=== PATIENT | female | born 1970 | race African-American/Black ===

== ENCOUNTER → 2017-11-18 | Outpatient (CLI) | payer MEDICARE, OTHER ==
--- NOTE | 2017-11-19 07:56 | MM ---
Reason for exam: screening (asymptomatic). Baseline mammogram. History: Family history of breast cancer in grandmother. Physical Findings: Nurse did not find any significant physical abnormalities on exam. MG 3D Screening Mammo W/Cad Bilateral CC and MLO view(s) were taken. No prior studies available for comparison. There is a 4.5mm mass 5.7cm from the nipple in the lower inner quadrant of the left breast at middle depth. Ultrasound will be performed. These results were verbally communicated with the patient and result sheet given to the patient on 11/18/17. ASSESSMENT: Incomplete: need additional imaging evaluation, BI-RAD 0 RECOMMENDATION: Ultrasound of the left breast. (Lower inner quadrant).
--- NOTE | 2017-11-19 08:00 | USB ---
Reason for exam: additional evaluation requested from abnormal screening. History: Family history of breast cancer in grandmother. US Breast Workup Limited LT Possibly benign appearing 5mm sonographic hyperchoic mass at 8 o'clock. However this is best seen mammographically and well circumscribed. 6 month follow up diagnostic mammogram is recommended. These results were verbally communicated with the patient and result sheet given to the patient on 11/18/17. ASSESSMENT: Probably benign, BI-RAD 3 RECOMMENDATION: Follow-up diagnostic mammogram of the left breast in 6 months.
== END | disposition home or self-care (01) ==
LOC: RADMAMWWP 13:04
PROVIDERS: ATTEND Internal Medicine
DX: Z12.31 Encounter for screening mammogram for malignant neoplasm of breast (principal); R92.8 Other abnormal and inconclusive findings on diagnostic imaging of breast; R92.2 Inconclusive mammogram
CPT/HCPCS: 77063; 77067

== ENCOUNTER → 2017-11-19 | Outpatient (CLI) | payer MEDICARE, OTHER ==
--- NOTE | 2017-11-19 23:36 | MR ---
EXAMINATION TYPE: MR shoulder LT wo con DATE OF EXAM: 11/19/2017 COMPARISON: NONE HISTORY: Lt shoulder pain x 2 mos, no trauma TECHNIQUE: Multiplanar, multisequence imaging of the left shoulder is performed without contrast. FINDINGS: The biceps tendon is intact. The glenoid amira appear intact. Subscapularis tendon is intact. The supraspinatus tendon shows some mild thinning at the greater tuberosity. There is no full-thickne ss tear seen. The glenohumeral joint is intact. There is no evidence of a fracture. There are small s houlder joint effusion. IMPRESSION: Small shoulder joint effusion consistent with synovitis. Slight increased signal and thinning of the supraspinatus tendon consistent with some tendinitis. No full-thickness tear seen.
== END | disposition home or self-care (01) ==
LOC: RADMRIMAIN 19:12
PROVIDERS: ATTEND Internal Medicine
DX: M25.412 Effusion, left shoulder (principal); M67.90 Unspecified disorder of synovium and tendon, unspecified site

== ENCOUNTER → 2018-03-10 | Outpatient (CLI) | payer MEDICARE, OTHER | END | disposition home or self-care (01) | LOC: LABWHC1 16:06 | PROVIDERS: ATTEND Anesthesiology | DX: Z01.818 Encounter for other preprocedural examination (principal) | CPT/HCPCS: 36415; 93005 ==

== ENCOUNTER → 2021-06-27 | Outpatient (CLI) | payer MEDICARE ==
[2021-06-27 19:15] LABS: HCT 48.5 % (37.2-46.3); HGB 15.2 g/dL (12.0-15.0); MCH 28.7 pg (27.0-32.0); MCHC 31.3 g/dL (32.0-37.0); MCV 91.7 fL (80.0-97.0); Mean Platelet Volume 11.9 fL (9.5-12.2); Platelet Count 300 X 10*3/uL (140-440); RBC 5.29 X 10*6/uL (4.10-5.20); RDW 14.9 % (11.5-14.5); WBC 11.64 X 10*3/uL (4.50-10.00)
[2021-06-27 20:11] LABS: ALT 17 U/L (8-44); AST 18 U/L (13-35); African American GFR (CKD) 118.7 (60.0-200.0); Albumin/Globulin Ratio 1.67 (1.60-3.17); Alkaline Phosphatase 107 U/L (41-126); Bilirubin, Conjugated <0.20 mg/dL (0.20-0.40); Carbon Dioxide 25.6 mmol/L (21.6-31.8); Chloride 107 mmol/L (96-109); Chol/HDL Ratio 4.82; Cholesterol 241 mg/dL (0-200); Globulin 2.7 g/dL (1.6-3.3); Iron 95 ug/dL (50-170); Non-African American GFR(CKD) 102.5 (60.0-200.0); Potassium 4.6 mmol/L (3.5-5.5); Sodium 140 mmol/L (135-145); Total Bilirubin 0.4 mg/dL (0.3-1.2); Total Protein 7.2 g/dL (6.2-8.2)
[2021-06-27 21:37] LABS: Hemoglobin A1C 5.4 % (4.0-6.0)
== END | disposition home or self-care (01) ==
LOC: LABWHC1 13:18
PROVIDERS: ATTEND Internal Medicine
DX: E66.9 Obesity, unspecified (principal); I10 Essential (primary) hypertension; R51.9 Headache, unspecified; R73.9 Hyperglycemia, unspecified
CPT/HCPCS: 36415; 80051; 80061; 80076; 82565; 83036; 83540; 84439; 84443; 84520; 85027

== ENCOUNTER 2024-03-11 00:50 | Emergency (ER) | payer MEDICARE ==
[2024-03-11 01:06] VITALS: TEMP 97.9
--- NOTE | 2024-03-11 01:42 | ED ---
General Adult HPI - General Chief complaint: Shortness of Breath Stated complaint: TOMAS back pain vomiting Time Seen by Provider: 03/11/24 01:13 Source: patient, family Mode of arrival: wheelchair - History of Present Illness Initial comments: 53-year-old female presented to the ED with complaints of abdominal pain. Reports over the past 4 to 5 days had some upper abdominal/lower chest pain wrapping around to her back on her. Reports that she feels this pain whenever she takes a deep breath. Secondary to the pain, patient reports that she becomes short of breath. Also notes some associated nausea, no vomiting and chills. Denies chest pain. No changes in bowel or bladder habits. Patient reports that she is not a drinker. No other complaints at this time. - Related Data Home Medications Medication Instructions Recorded Confirmed DULoxetine HCL [Cymbalta] 90 mg PO DAILY 07/10/14 02/02/16 ARIPiprazole [Abilify] 10 mg PO DAILY 10/18/14 02/02/16 Propranolol HCl [Inderal] 100 mg PO DAILY 10/18/14 02/02/16 Topiramate [Topamax] 200 mg PO DAILY 10/18/14 02/02/16 lisinopriL [Zestril] 10 mg PO DAILY 10/18/14 02/02/16 HYDROcodone/APAP 10-325MG [[place] 1 tab PO DIRECTED PRN 12/14/14 02/02/16 10-325] oxyCODONE HCL 15 mg PO DIRECTED PRN 12/14/14 02/02/16 SUMAtriptan succinate [Imitrex] 8 mg SQ DAILY PRN 02/02/16 02/02/16 Previous Rx's Medication Instructions Recorded Naproxen 500 mg PO Q12HR 14 Days tab 02/02/16 Ondansetron Odt [Zofran Odt] 4 mg PO Q8HR PRN #10 tab 03/11/24 Allergies Allergy/AdvReac Type Severity Reaction Status Date / Time latex Allergy Rash/Hives Verified 03/11/24 01:00 Review of Systems ROS Statement: Those systems with pertinent positive or pertinent negative responses have been documented in the HPI. ROS Other: All systems not noted in ROS Statement are negative. Past Medical History Past Medical History: Hyperlipidemia, Hypertension Additional Past Medical History / Comment(s): migraines History of Any Multi-Drug Resistant Organisms: None Reported Past Surgical History: No Surgical Hx Reported, Section, Hysterectomy, Tubal Ligation Past Psychological History: Anxiety, Depression Smoking Status: Never smoker, Vaper Past Alcohol Use History: None Reported Past Drug Use History: None Reported General Exam General appearance: alert, in no apparent distress Eye exam: Present: normal appearance Neck exam: Present: normal inspection Respiratory exam: Present: normal lung sounds bilaterally. Absent: respiratory distress Cardiovascular Exam: Present: regular rate GI/Abdominal exam: Present: soft (Epigastric tenderness to palpation. No r ebound guarding or rigidity. Bowel sounds present.) Neurological exam: Present: alert, oriented X3 Skin exam: Present: warm, dry Course Vital Signs 03/11/24 03/11/24 03/11/24 00:53 01:30 02:00 Temperature 97.9 F Pulse Rate 80 82 Respiratory 18 16 16 Rate Blood Pressure 146/90 146/82 O2 Sat by Pulse 98 98 Oximetry Medical Decision Making - Medical Decision Making Was pt. sent in by a medical professional or institution (Dr. PA, [facility], urgent care, hospital, or senior living...) When possible be specific @ -No Did you speak to anyone other than the patient for history (EMS, parent, family, police, friend...)? What history was obtained from this source @ -No Did you review nursing and triage notes (agree or disagree)? Why? @ -I reviewed and agree with nursing and triage notes Were old charts reviewed (outside hosp., previous admission, EMS record, old EKG, old radiological studies, urgent care reports/EKG's, senior living records)? Report findings @ -No old charts were reviewed Differential Diagnosis (chest pain, altered mental status, abdominal pain women, abdominal pain men, vaginal bleeding, weakness, fever, dyspnea, syncope, headache, dizziness, GI bleed, back pain, seizure, CVA, palpatations, mental health, musculoskeletal)? @ -Differential Abdominal Pain Women: Appendicitis, Cholecystitis, diverticulosis, ischemic bowel, pancreatitis, hepatitis, UTI, gastroenteritis, AAA, incarcerated hernia, bowel obstruction, constipation, inflammatory bowel, hepatitis, peptic ulcer disease, splenic infarction, perforated viscus, vulvitis, ovarian torsion, PID, kidney stone, placenta abruption, this is not meant to be an all-inclusive list Differential Dyspnea: Coronary syndrome, arrhythmia, tamponade, asthma, COPD, pulmonary embolism, pneumonia, pneumothorax, pulmonary effusion, anaphylaxis, diabetic ketoacidosis, flailed chest, pulmonary contusion, diaphragmatic rupture, anemia, neuromuscular, this is not meant to be an all-inclusive list. EKG interpreted by me (3pts min.). @ -EKG interpreted me showing a sinus rhythm at [address] or T wave changes. MN 192, QRS 84, QT/QTc 354/376. X-rays interpreted by me (1pt min.). @ -Chest x-ray interpreted me which shows mild diffuse interstitial prominence compatible with pulmonary vascular congestion. CT interpreted by me (1pt min.). @ -None done U/S interpreted by me (1pt. min.). @ -None done What testing was considered but not performed or refused? (CT, X-rays, U/S, labs)? Why? @ -None What meds were considered but not given or refused? Why? @ -None Did you discuss the management of the patient with other professionals (professionals i.e. , PA, [facility], lab, RT, psych nurse, licensed clinical social worker, it web development consultant, teacher, global chief creative officer, field nurse case manager)? Give summary @ -No Was smoking cessation discussed for >3mins.? @ -No Was critical care preformed (if so, how long)? @ -No Were there social determinants of health that impacted care today? How? (Dany elessness, low income, unemployed, alcoholism, drug addiction, transportation, low edu. Level, literacy, decrease access to med. care, fdc, rehab)? @ -No Was there de-escalation of care discussed even if they declined (Discuss DNR or withdrawal of care, Hospice)? DNR status @ -No What co-morbidities impacted this encounter? (DM, HTN, Smoking, COPD, CAD, Cancer, CVA, ARF, Chemo, Hep., AIDS, mental health diagnosis, sleep apnea, morbid obesity)? @ -None Was patient admitted / discharged? Hospital course, mention meds given and route, prescriptions, significant lab abnormalities, going to OR and other pertinent info. @ -Discharge 53-year-old female presenting to the ED with complaints of upper abdominal pain wrapping around the right side of her abdomen to her back. Reports that she feels pain whenever she takes a deep breath and secondary to this has become short of breath and nauseous. Laboratory studies reviewed CBC does show an elevated white blood cell count of 12.2, elevated neutrophils 8.6. Chemistry panel largely unremarkable. Troponin undetectable. Urine shows no significant evidence of infection. Serology panel unremarkable. Chest x-ray showed findi ngs consistent with pulmonary vascular congestion. Symptoms likely musculoskeletal in nature. Vital signs stable afebrile with no tachycardia or hypoxia. Discharged home in stable condition with instructions to follow-up with her PCP. Discussed return precautions with patient who verbalized agree ment. Undiagnosed new problem with uncertain prognosis? @ -No Drug Therapy requiring intensive monitoring for toxicity (Heparin, Nitro, Insulin, Cardizem)? @ -No Were any procedures done? @ -No Diagnosis/symptom? @ -Abdominal pain Acute, or Chronic, or Acute on Chronic? @ -Acute Uncomplicated (without systemic symptoms) or Complicated (systemic symptoms)? @ -Uncomplicated Side effects of treatment? @ -No Exacerbation, Progression, or Severe Exacerbation? @ -No Poses a threat to life or bodily function? How? (Chest pain, [place], [place], pneumonia, PE, COPD, DKA, ARF, appy, cholecystitis, CVA, Diverticulitis, Homicidal, Suicidal, threat to staff... and all critical care pts) @ -No - Lab Data Result diagrams: 03/11/24 01:20 03/11/24 01:20 Lab Results 03/11/24 03/11/24 03/11/24 Range/Units 01:20 01:20 01:20 WBC 12.2 H (3.8-10.6) k/uL RBC 5.43 H (3.80-5.40) m/uL Hgb 15.0 (11.4-16.0) gm/dL Hct 47.5 H (34.0-46.0) % MCV 87.6 (80.0-100.0) fL MCH 27.7 (25.0-35.0) pg MCHC 31.6 (31.0-37.0) g/dL RDW 13.7 (11.5-15.5) % Plt Count 305 (150-450) k/uL MPV 8.9 Neutrophils % 71 % Lymphocytes % 21 % Monocytes % 4 % Eosinophils % 2 % Basophils % 0 % Neutrophils # 8.6 H (1.3-7.7) k/uL Lymphocytes # 2.6 (1.0-4.8) k/uL Monocytes # 0.5 (0-1.0) k/uL Eosinophils # 0.2 (0-0.7) k/uL Basophils # 0.1 (0-0.2) k/uL PT 10.2 (10.0-12.5) sec INR 0.9 (<1.2) APTT 23.8 (22.0-30.0) sec Sodium 141 (137-145) mmol/L Potassium 4.4 (3.5-5.1) mmol/L Chloride 113 H (98-107) mmol/L Carbon Dioxide 18 L (22-30) mmol/L Anion Gap 10 mmol/L BUN 15 (7-17) mg/dL Creatinine 0.78 (0.52-1.04) mg/dL Est GFR (CKD-EPI)AfAm >90 (>60 ml/min/1.73 sqM) Est GFR (CKD-EPI)NonAf 89 (>60 ml/min/1.73 sqM) Glucose 103 H (74-99) mg/dL Calcium 9.5 (8.4-10.2) mg/dL Total Bilirubin 0.4 (0.2-1.3) mg/dL AST 31 (14-36) U/L ALT 19 (4-34) U/L Alkaline Phosphatase 111 (38-126) U/L Troponin I (0.000-0.034) ng/mL Total Protein 7.3 (6.3-8.2) g/dL Albumin 4.1 (3.5-5.0) g/dL Amylase 57 (30-110) U/L Lipase 148 (23-300) U/L Urine Color Urine Appearance (Clear) Urine pH (5.0-8.0) Ur Specific [place] (1.001-1.035) Urine Protein (Negative) Urine Glucose (UA) (Negative) Urine Ketones (Negative) Urine Blood (Negative) Urine Nitrite (Negative) Urine Bilirubin (Negative) Urine Urobilinogen (<2.0) mg/dL Ur Leukocyte Esterase (Negative) Urine WBC (0-5) /hpf Ur Squamous Epith Cells (0-4) /hpf Amorphous Sediment (None) /hpf Urine Mucus (None) /hpf Influenza Type A (PCR) (Not Detectd) Influenza Type B (PCR) (Not Detectd) RSV (PCR) (Not Detectd) SARS-CoV-2 (PCR) (Not Detectd) 03/11/24 03/11/24 03/11/24 Range/Units 01:20 01:20 01:35 WBC (3.8-10.6) k/uL RBC (3.80-5.40) m/uL Hgb (11.4-16.0) gm/dL Hct (34.0-46.0) % MCV (80.0-100.0) fL MCH (25.0-35.0) pg MCHC (31.0-37.0) g/dL RDW (11.5-15.5) % Plt Count (150-450) k/uL MPV Neutrophils % % Lymphocytes % % Monocytes % % Eosinophils % % Basophils % % Neutrophils # (1.3-7.7) k/uL Lymphocytes # (1.0-4.8) k/uL Monocytes # (0-1.0) k/uL Eosinophils # (0-0.7) k/uL Basophils # (0-0.2) k/uL PT (10.0-12.5) sec INR (<1.2) APTT (22.0-30.0) sec Sodium (137-145) mmol/L Potassium (3.5-5.1) mmol/L Chloride (98-107) mmol/L Carbon Dioxide (22-30) mmol/L Anion Gap mmol/L BUN (7-17) mg/dL Creatinine (0.52-1.04) mg/dL Est GFR (CKD-EPI)AfAm (>60 ml/min/1.73 sqM) Est GFR (CKD-EPI)NonAf (>60 ml/min/1.73 sqM) Glucose (74-99) mg/dL Calcium (8.4-10.2) mg/dL Total Bilirubin (0.2-1.3) mg/dL AST (14-36) U/L ALT (4-34) U/L Alkaline Phosphatase (38-126) U/L Troponin I <0.012 (0.000-0.034) ng/mL Total Protein (6.3-8.2) g/dL Albumin (3.5-5.0) g/dL Amylase (30-110) U/L Lipase (23-300) U/L Urine Color Light Yellow Urine Appearance Turbid H (Clear) Urine pH 7.5 (5.0-8.0) Ur Specific [place] 1.023 (1.001-1.035) Urine Protein Trace H (Negative) Urine Glucose (UA) Negative (Negative) Urine Ketones Negative (Negative) Urine Blood Negative (Negative) Urine Nitrite Negative (Negative) Urine Bilirubin Negative (Negative) Urine Urobilinogen <2.0 (<2.0) mg/dL Ur Leukocyte Esterase Small H (Negative) Urine WBC <1 (0-5) /hpf Ur Squamous Epith Cells 9 H (0-4) /hpf Amorphous Sediment Moderate H (None) /hpf Urine Mucus Rare H (None) /hpf Influenza Type A (PCR) Not Detected (Not Detectd) Influenza Type B (PCR) Not Detected (Not Detectd) RSV (PCR) Not Detected (Not Detectd) SARS-CoV-2 (PCR) Not Detected (Not Detectd) Disposition Clinical Impression: Abdominal pain Disposition: HOME SELF-CARE Condition: Good Additional Instructions: Please return to the Emergency Department if symptoms worsen or any other concerns. Please use [id number] medications as needed for pain. Follow- up with your primary care provider. Prescriptions: Ondansetron Odt [Zofran Odt] 4 mg PO Q8HR PRN #10 tab PRN Reason: Nausea Is patient prescribed a controlled substance at d/c from ED?: No Referrals: John Key MD [Primary Care Provider] - 1-2 days Time of Disposition: 05:12
[2024-03-11] MEDS: ONDANSETRON 4 MG/2 ML VIAL IVP STA (01:44)
[2024-03-11] MEDS: KETOROLAC 15 MG/ML 1 ML VIAL IVP STA (01:44)
[2024-03-11] MEDS: SODIUM CHLORIDE 0.9% 1,000 ML IV STA (01:45)
[2024-03-11 02:00] LABS: Basophils # (A) 0.1 k/uL (0-0.2); Basophils % (A) 0 %; Eosinophils # (A) 0.2 k/uL (0-0.7); Eosinophils % (A) 2 %; HCT 47.5 % (34.0-46.0); Lymphocytes # (A) 2.6 k/uL (1.0-4.8); Lymphocytes % (A) 21 %; MCH 27.7 pg (25.0-35.0); MCHC 31.6 g/dL (31.0-37.0); MCV 87.6 fL (80.0-100.0); Mean Platelet Volume 8.9; Monocytes # (A) 0.5 k/uL (0-1.0); Monocytes % (A) 4 %; Neutrophils # (A) 8.6 k/uL (1.3-7.7); Neutrophils % (A) 71 %; Platelet Count 305 k/uL (150-450); RBC 5.43 m/uL (3.80-5.40); RDW 13.7 % (11.5-15.5); WBC 12.2 k/uL (3.8-10.6)
[2024-03-11 02:13] LABS: INR 0.9 (<1.2); Partial Thromboplastin Time 23.8 sec (22.0-30.0); Prothrombin Time 10.2 sec (10.0-12.5)
[2024-03-11 02:16] LABS: Amorphous Sediment,Urine Moderate /hpf; Appearance,Urine Turbid (Clear); Bilirubin,Urine Negative (Negative); Blood,Urine Negative (Negative); Color,Urine Light Yellow; Glucose,Urine (UA) Negative (Negative); Ketones,Urine Negative (Negative); Leukocyte Esterase,Urine Small (Negative); Mucus,Urine Rare /hpf; Nitrite,Urine Negative (Negative); PH, Urine 7.5 (5.0-8.0); Protein,Urine Trace (Negative); Specific Gravity,Urine 1.023 (1.001-1.035); Squamous Epithelial Cell,Urine 9 /hpf (0-4); Urobilinogen,Urine <2.0 mg/dL (<2.0); WBC,Urine <1 /hpf (0-5)
[2024-03-11 02:17] LABS: ALT 19 U/L (4-34); AST 31 U/L (14-36); African American GFR (CKD) >90 (>60 ml/min/1.73 sqM); Albumin 4.1 g/dL (3.5-5.0); Alkaline Phosphatase 111 U/L (38-126); Amylase 57 U/L (30-110); Anion Gap 10 mmol/L; Blood Urea Nitrogen 15 mg/dL (7-17); Calcium 9.5 mg/dL (8.4-10.2); Carbon Dioxide 18 mmol/L (22-30); Chloride 113 mmol/L (98-107); Glucose 103 mg/dL (74-99); Lipase 148 U/L (23-300); Non-African American GFR(CKD) 89 (>60 ml/min/1.73 sqM); Potassium 4.4 mmol/L (3.5-5.1); Sodium 141 mmol/L (137-145); Total Bilirubin 0.4 mg/dL (0.2-1.3); Total Protein 7.3 g/dL (6.3-8.2)
--- NOTE | 2024-03-11 04:59 | XR ---
EXAM: XR Chest, 2 Views CLINICAL HISTORY: Difficulty breathing TECHNIQUE: Frontal and lateral views of the chest. COMPARISON: 05/02/2016. FINDINGS: Heart is top normal size. Mild diffuse interstitial prominence compatible with pulmonary vascular congestion. No focal infiltrate. No pleural effusion or pneumothorax. Bones are unremarkable. IMPRESSION: Mild diffuse interstitial prominence compatible with pulmonary vascular congestion.
[2024-03-11 06:05] VITALS: BP 131/79; PULSE 74; RESP 18
== END 2024-03-11 05:31 | disposition home or self-care (01) ==
LOC: EC 00:50
DX: R10.10 Upper abdominal pain, unspecified (principal); F17.290 Nicotine dependence, other tobacco product, uncomplicated; Z91.040 Latex allergy status
CPT/HCPCS: 99285; 96374; 96375; 96361; 36415; 93005; 80053; 82150; 83690; 84484; 85025; 85610; 85730; 81001; 87636; 71046; J2405; J1885

== ENCOUNTER → 2024-08-26 | Outpatient (CLI) | payer MEDICARE ==
--- NOTE | 2024-08-26 18:45 | XR ---
EXAMINATION TYPE: XR lumbar spine 5 views with bend/flex, XR sacrum coccyx 3 views DATE OF EXAM: 08/26/2024 Comparison: None Clinical History: 53-year-old female SPONDYLOSIS W/O MYELOPATHY OR RADICULOPATHY, LUMBAR REGION Findings: Lumbar spine: 5 lumbar type vertebral bodies. Mild multilevel degenerative disc disease with variable mild disc spa ce narrowing and minimal endplate spondylosis. There is mild to moderate facet arthropathy mid to low er lumbar spine. Degenerative trace grade 1 retrolisthesis L3-L4 and L4-L5. Remaining alignment is ma intained. Vertebral body heights are preserved. Sacrum and coccyx: SI joints appear symmetric and intact. Smooth delineation to the arcuate lines of the sacrum. No disp laced or angulated sacral or coccygeal fracture is seen. Impression: 1. Lumbar spine: Mild multilevel degenerative disc disease. Scattered [id number] facet arthropa thy. Degenerative trace grade 1 retrolisthesis L3-L4 and L4-L5. No vertebral compression collapse. 2. Sacrum and coccyx: No displaced or angulated tailbone fracture. [facility], , 08/26/2024 6:43 PM
== END | disposition home or self-care (01) ==
LOC: RADXRMAIN 15:56
CPT/HCPCS: 72114; 72220